=== PATIENT | female | born 1955 | race Caucasian/White ===

== ENCOUNTER → 2018-06-29 10:45 | Outpatient (REF) | payer MEDICAID, SELFPAY | LOC: LBN 10:45 | PROVIDERS: PCP Nurse Practitioner Family; Visit Provider Nurse Practitioner Family | DX: N76.0 Acute vaginitis (principal) | CPT/HCPCS: 87480; 87510; 87660 ==

== ENCOUNTER → 2018-07-02 16:48 | Outpatient (REF) | payer MEDICAID, SELFPAY ==
[2018-07-04 10:56] LABS: Campylobacter PCR SEE COMMENTS; Salmonella PCR SEE COMMENTS; Shiga Toxin PCR SEE COMMENTS; Shigella/Enteroinvasive Ecoli SEE COMMENTS
== END ==
LOC: LBN 16:48
PROVIDERS: PCP Nurse Practitioner Family; Visit Provider Nurse Practitioner Family
DX: K62.5 Hemorrhage of anus and rectum (principal)
CPT/HCPCS: 87505; 87177

== ENCOUNTER 2018-08-11 05:54 | Day surgery (SDC) | payer MEDICAID, SELFPAY ==
[2018-08-11 06:18] VITALS: BP 193/99; PULSE 99; RESP 18; TEMP 36.7; O2SAT 98
[2018-08-11] MEDS: Lactated Ringers 1,000 ML 30 ML IV (06:40)
[2018-08-11] MEDS: Cellulose,Oxidized 2X3 PKT 1 EACH MC (08:19)
--- NOTE | 2018-08-11 08:36 | W.PM.DSUDISC ---
Discharge Plan Disposition Patient Disposition: HOME Condition: Good Discharge Details Reason For Visit: rectal bleeding Attending Provider: Morgan Garner Primary Care Provider: Oliva De La Torre Home Meds and New Rx's Prescriptions: No Action ibuprofen [Advil Liqui-Gel] 200 MG capsule 200 mg PO Q4H PRN RF: 0 levothyroxine 75 MCG tablet 75 mcg PO DAILY Qty: 90 RF: 3 atorvastatin [Lipitor] 20 MG tablet 20 mg PO HS Qty: 90 RF: 4 lansoprazole [Prevacid] 30 MG capsule,delayed release(DR/EC) 30 mg PO DAILY Qty: 90 RF: 2 losartan 25 MG tablet 25 mg PO DAILY Qty: 90 RF: 4 hydroxyzine HCl 25 MG tablet 25 mg PO QID PRNQty: 30 RF: 0 ranitidine HCl [Zantac] 300 MG tablet 300 mg PO HS RF: 0 Discharge Instructions Instructions: Sphincterotomy (DC) Additional Instructions: Expect wound drainage for about a week, should taper off over the week Referrals: Morgan Garner DO [ [facility] STAFF PHYSICIAN] - 08/17/18 10:45 am (Follow up after lateral sphincterotomy for anal fissure) Activity:: Activity as Tolerated Shower/Bathe:: 24 hours Diet:: As Tolerated Discharge Orders Discharge Orders: Discharge Order (Routine); Ordered 08/11/18 Ordered By: Morgan Garner DS: Diagnosis Discharge Diagnosis (1) Rectal bleeding: Status: Acute
--- NOTE | 2018-08-11 08:40 | PDOC.DSDIS_ITS ---
Discharge Plan Disposition Patient Disposition: HOME Condition: Good Discharge Details Reason For Visit: rectal bleeding Attending Provider: Morgan Garner Primary Care Provider: Oliva De La Torre Home Meds and New Rx's Prescriptions: No Action ibuprofen [Advil Liqui-Gel] 200 MG capsule 200 mg PO Q4H PRN RF: 0 levothyroxine 75 MCG tablet 75 mcg PO DAILY Qty: 90 RF: 3 atorvastatin [Lipitor] 20 MG tablet 20 mg PO HS Qty: 90 RF: 4 lansoprazole [Prevacid] 30 MG capsule,delayed release(DR/EC) 30 mg PO DAILY Qty: 90 RF: 2 losartan 25 MG tablet 25 mg PO DAILY Qty: 90 RF: 4 hydroxyzine HCl 25 MG tablet 25 mg PO QID PRNQty: 30 RF: 0 ranitidine HCl [Zantac] 300 MG tablet 300 mg PO HS RF: 0 Discharge Instructions Instructions: Sphincterotomy (DC) Additional Instructions: Expect wound drainage for about a week, should taper off over the week Referrals: Morgan Garner DO [ [facility] STAFF PHYSICIAN] - 08/17/18 10:45 am (Follow up after lateral sphincterotomy for anal fissure) Activity:: Activity as Tolerated Shower/Bathe:: 24 hours Diet:: As Tolerated Discharge Orders Discharge Orders: Discharge Order (Routine); Ordered 08/11/18 Ordered By: Morgan Garner DS: Diagnosis Discharge Diagnosis (1) Rectal bleeding: Status: Acute
--- NOTE | 2018-08-11 08:40 | W.PM.OP ---
Date of service: 08/11/18 Time of Service: 08:40 Operative Note DATE OF PROCEDURE: 08/11/18 PRE-OP DIAGNOSIS: Rectal Bleeding POST-OP DIAGNOSIS: other (Anal Fissure) PROCEDURE: Examination under anesthesia of anus and rectum with lateral Sphincterotomy SURGEON: Morgan Garner RESIDENTIAL AIR SEALING TECHNICIAN: Kristin Daily ANESTHESIA: MAC (Erika Gomez CRNA ASA 2 Mallampati II) and spinal ESTIMATED BLOOD LOSS: 1 PATHOLOGY: none sent COMPLICATIONS: None Patient was transported to: same day Patient's condition: stable Indications: 63-year-old woman referred for rectal bleeding. She has had about a years worth of intermittent bright red blood per rectum occasionally clots. This occurs after her bowel movements she sometimes has burning itching with this. She has difficulty with having a bowel movement. She is often constipated. She knows of no alleviating or aggravating interventions. She had a colonoscopy and upper endoscopy 3 years ago which showed no evidence of hemorrhoids or other pathology the anus, rectum, colon. She was asymptomatic after that up until about a year ago and her bleeding started. She first noticed this after passing hard stool and was intermittent since then. 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 A lateral sphincterotomy was subsequently performed. Procedure Description: The patient was brought to the operating room. Spinal anesthetic was performed by anesthesia. The patient was positioned prone with all bony prominences padded, and sedation was titrated for effect by the RELATIONSHIP BANKER. Appropriate timeout was taken reviewing the patient's identification, procedure, allergies, medications, and needed equipment. I began by performing a digital rectal exam. There is no palpable evidence of hemorrhoids, slight thickening of the external sphincter muscle was noticeable circumferentially, and noted thickening was present in the posterior midline. I then introduced a bullet anoscope, and examined the anus and rectum circumferentially. No evidence of hemorrhoidal disease was seen 360 degree examination of the anus and distal rectum. In the posterior midline consistent with a thickened area of tissue was a fissure with recent signs of bleeding. I then performed a lateral sphincterotomy. Starting 90 degrees to the left of the anal fissure made a 1.5 cm radial incision starting just above the anal verge extending outward. Blunt dissection was performed anterior and posterior to the external sphincter muscle. Then using a right angle clamp, I passed this through the muscle pulling approximately a centimeter length of this up into the wound field. This was subsequently divided using cautery. Hemostasis obtained with cautery. I lightly packed the wound with Surgicel for hemostasis. A dry sterile dressing was applied the patient was awakened in the OR and brought to the day surgery recovery area in good condition. All counts were reported as correct x2.
[2018-08-11 09:00] VITALS: BP 152/84; PULSE 94; RESP 18; TEMP 35.9; O2SAT 97
[2018-08-11 09:40] VITALS: BP 147/83; PULSE 83; RESP 16; O2SAT 98
[2018-08-11 10:05] VITALS: BP 144/80; PULSE 92; RESP 18; TEMP 36; O2SAT 98
== END 2018-08-11 11:15 | disposition home or self-care (01) ==
PROVIDERS: PCP Nurse Practitioner Family; Visit Provider Surgery
PROC: (CPT 46080; principal; 2018-08-11 07:30)
PROC: (CPT 46080; 2018-08-11 07:30)
DX: K60.1 Chronic anal fissure (principal); K62.5 Hemorrhage of anus and rectum; K21.9 Gastro-esophageal reflux disease without esophagitis; I10 Essential (primary) hypertension
CPT/HCPCS: 46080; J2250; J2405

== ENCOUNTER 2018-10-19 02:31 | Outpatient (CLI) | payer MEDICAID, SELFPAY ==
[2018-10-19 13:06] LABS: Abs Immature Grans 0.03 k/cumm (0.0-0.09); Absolute Basophil Count 0.02 k/cumm (0.0-0.2); Absolute Eosinophil Count 0.12 k/cumm (0.0-0.7); Absolute Lymphocyte Count 1.61 k/cumm (1.2-3.4); Absolute Monocyte Count 0.27 k/cumm (0.11-0.7); Absolute Neutrophil Count 5.77 k/cumm (1.2-6.7); Basophils % 0.3; Eosinophils % 1.5; HCT 42.7 % (36.0-46.0); HGB 14.2 g/dL (12.0-15.5); Immature Grans % 0.4; Lymphocytes % 20.6; Mean Corp. HGB Concentration 33.3 g/dL (32.0-36.0); Mean Corpuscular Hemoglobin 29.8 pg (27.0-33.0); Mean Corpuscular Volume 89.7 fL (80-95); Mean Platelet Volume 10.2 fL (8.0-11.0); Monocytes % 3.5; Neutrophils % 73.7; Platelet Count 292 x1000/uL (130-400); RBC 4.76 m/cumm (4.00-5.20); RBC Distribution Width 13.3 % (11.7-14.6); White Blood Cell Count 7.82 k/cumm (4.4-10.8)
[2018-10-19 13:47] LABS: Anion Gap 11.1 mmol/L (3-11); BUN 19 mg/dL (7-18); CO2 26.9 mmol/L (21.0-32.0); CREATININE 0.75 mg/dL (0.55-1.02); Calcium 9.1 mg/dL (8.5-10.1); Chloride 102 mmol/L (98-107); Cholesterol 189 mg/dL (50-200); Glucose 92 mg/dL (70-100); HDL Cholesterol 53 mg/dL (40-60); LDL CHOLESTEROL 99 mg/dL (<100); Potassium 4.7 mmol/L (3.5-5.1); Sodium 140 mmol/L (136-145); Triglyceride 210 mg/dL (30-150)
== END 2018-10-19 02:51 ==
PROVIDERS: PCP Nurse Practitioner Family; Visit Provider Nurse Practitioner Family
DX: I10 Essential (primary) hypertension (principal); E78.5 Hyperlipidemia, unspecified; Z00.00 Encounter for general adult medical examination without abnormal findings; N76.0 Acute vaginitis
CPT/HCPCS: 36415; 80048; 80061; 83721; 85025; 87480; 87510; 87660

== ENCOUNTER 2018-10-28 01:08 | Outpatient (CLI) | payer MEDICAID, SELFPAY ==
--- NOTE | 2018-10-28 12:03 | DI.MAMMO_ITS ---
SYMPTOMS/DIAGNOSIS: SCREENING, Z12.31 MAMMOGRAMS: Mammograms were interpreted according to the usual protocol including computer analysis with CAD system, tomosynthesis and C view imaging. The breast tissue is of moderate radiodensity. There are small well- circumscribed lateral areas of nodularity, which are not significantly changed. There is apparent left nipple retraction. There is no definite mass. SUMMARY: Left nipple retraction is demonstrated. LEFT BREAST ULTRASOUND: The ultrasound examination reveals ductal prominence. There is no discrete mass. Correlation of these findings with the patient's clinical status and, if appropriate, a ductogram could be considered. Category 3, breast density category C. Return visit for mammogram in six months. [facility] ASSESSMENT OF FINDINGS: Probably benign. Six month follow-up recommended. Category 3. Patient will receive a letter notifying them of these results. Bi-RADS category C. The breasts are heterogeneously dense, which may obscure small masses.
== END 2018-10-28 01:28 ==
PROVIDERS: PCP Nurse Practitioner Family; Visit Provider Nurse Practitioner Family
DX: Z12.31 Encounter for screening mammogram for malignant neoplasm of breast (principal); N64.53 Retraction of nipple; R92.8 Other abnormal and inconclusive findings on diagnostic imaging of breast; N64.89 Other specified disorders of breast
CPT/HCPCS: 76642; 77063; 77067

== ENCOUNTER 2019-04-28 00:40 | Outpatient (CLI) | payer MEDICAID, SELFPAY ==
--- NOTE | 2019-04-28 10:00 | DI.COMBO_ITS ---
SYMPTOMS/DIAGNOSIS: 6-MO F/U ABNORMAL MAMMO SIX-MONTH FOLLOW-UP LEFT MAMMOGRAM AND LEFT BREAST ULTRASOUND: Mammograms were interpreted according to the usual protocol including computer analysis with CAD system, tomosynthesis and C view imaging. Craniocaudad compression spot films of the left breast were obtained today and are not significantly changed when compared with prior images. Two small ovoid densities are noted in the lateral subareolar portion of the left breast. Ultrasound examination is compared with the previous study. Again noted are multiple dilated ducts. No discrete cyst or mass is evident. SUMMARY: No evidence of malignancy, category 2. Yearly screening mammography is recommended. Breast density category B. [facility] ASSESSMENT OF FINDINGS: Negative with benign findings. Category 2. Patient will receive a letter notifying them of these results. BI-RADS category B. There are scattered areas of fibroglandular density.
== END 2019-04-28 01:00 ==
PROVIDERS: PCP Nurse Practitioner Family; Visit Provider Nurse Practitioner Family
DX: Z12.31 Encounter for screening mammogram for malignant neoplasm of breast (principal); R92.8 Other abnormal and inconclusive findings on diagnostic imaging of breast; N60.42 Mammary duct ectasia of left breast; N60.82 Other benign mammary dysplasias of left breast
CPT/HCPCS: 76642; 77061; 77065; G0279

== ENCOUNTER 2019-04-30 02:07 | Outpatient (CLI) | payer MEDICAID, SELFPAY ==
[2019-04-30 12:19] LABS: FREE T4 1.17 ng/dL (0.76-1.46); TSH 2.61 uIU/mL (0.358-3.74)
[2019-05-03 10:54] LABS: Thyroglobulin Antibody >500 U/mL (<61); Thyroperoxidase Antibody 30 U/mL (<61)
== END 2019-04-30 02:27 ==
PROVIDERS: PCP Nurse Practitioner Family; Visit Provider Nurse Practitioner Family
DX: I10 Essential (primary) hypertension (principal)
CPT/HCPCS: 36415; 86376; 84439; 84443

== ENCOUNTER 2019-05-19 00:38 | Outpatient (CLI) | payer MEDICAID, SELFPAY ==
[2019-05-19] MEDS: Breeza Beverage 473 ML BTL PO ×2 (08:50→08:51)
[2019-05-19] MEDS: Omnipaque 350 MG/ML 50 ML BTL PO (08:51)
[2019-05-19 08:54] LABS: CREATININE 0.79 mg/dL (0.55-1.02)
--- NOTE | 2019-05-19 10:23 | DI.CT_ITS ---
SYMPTOM/DIAGNOSIS: CRAMPY CENTRAL ABD PAIN, RECTAL BLEEDING, R10.9, ABD PAIN ABDOMEN AND PELVIC CT: CT examination of the abdomen and pelvis was performed with a bolus infusion of 100 cc's of Omnipaque 350 and ingestion of dilute barium. Images obtained through the lung bases are unremarkable. Liver and spleen appear normal. Note is made of a prior cholecystectomy. No biliary dilatation is seen. Pancreas appears normal. Adrenals and kidneys are unremarkable. No urinary tract calcification or obstruction. Abdominal aorta is of normal diameter and no major vascular abnormality is seen. No significant abdominal wall hernia is seen. No abdominal or pelvic adenopathy. CUTTING INSPECTOR structures appear intact except for a probable posterior uterine fibroid. Appendix appears normal. There is a question of mild wall thickening of the transverse, descending and sigmoid colon. This is a somewhat questionable finding since the lumen is predominantly collapsed. No pericolonic fat edema is seen. No evidence of obstruction. No evidence of diverticulitis. Small bowel has an unremarkable appearance. CONCLUSION: 1. Previous cholecystectomy noted. 2. Question mild wall thickening transverse, descending and sigmoid colon, consider colitis.
[2019-05-19] MEDS: Omnipaque 350 MG/ML 100 ML BTL IJ (10:24)
== END 2019-05-19 00:58 ==
PROVIDERS: PCP Nurse Practitioner Family; Visit Provider Surgery
DX: R10.84 Generalized abdominal pain (principal); K62.5 Hemorrhage of anus and rectum; K63.89 Other specified diseases of intestine; Z90.49 Acquired absence of other specified parts of digestive tract
CPT/HCPCS: 74177; 82565; J3490; Q9967

== ENCOUNTER 2019-06-11 02:11 | Outpatient (CLI) | payer MEDICAID, SELFPAY ==
--- NOTE | 2019-06-11 12:43 | DI.US_ITS ---
SYMPTOMS/DIAGNOSIS: POSTMENOPAUSAL BLEEDING, N95.0 PELVIC ULTRASOUND: Transabdominal and transvaginal examination was performed. The uterus measures 6.4 cm long x 4 cm AP x 4.7 cm transverse. There is a hypoechoic mass arises from the fundus of the uterus measuring 2 x 2 x 2. 7 cm. There is a second hypoechoic mass seen in the posterior body measuring 1.4 x 0.8 x 1.2 cm. These are most suggestive of uterine fibroids. The endometrial stripe is within normal limits at 2.7 mm. The ovaries were not visualized transabdominally or transvaginally. No adnexal masses are seen. No free pelvic fluid or hydronephrosis is appreciated. IMPRESSION: Fibroid uterus.
== END 2019-06-11 02:31 ==
PROVIDERS: PCP Nurse Practitioner Family; Visit Provider Nurse Practitioner Family
DX: N95.0 Postmenopausal bleeding (principal); D25.9 Leiomyoma of uterus, unspecified
CPT/HCPCS: 76830; 76856

== ENCOUNTER 2019-06-18 13:18 | Outpatient (REF) | payer MEDICAID, SELFPAY ==
--- NOTE | 2019-06-18 12:15 | ENDO_PTH ---
PATIENT: Lidia Azevedo LOC: [facility] U#:[id number] AGE/SX: 64/F ROOM: RE06/18/[address]: Shelby Rosales MD : 1955 BED: DIS: 06/18/2019 SPEC #: [id number] RECD: 06/18/19 18:01 STATUS: NEDA REVeda #: [id number] LEFTY: 06/18/19 12:[address]: Shelby Rosales DEPT: Surgical Specimen RECD BY: Caitlyn Ling ENTERED: 06/18/19 18:02 SP TYPE: Endo OTHR DR: KATIE Casas Tissues: 1 - ENDOCERVICAL BX/CURRETTE Procedures: GROSS AND MICRO LEVEL 4 Comments: [id number]
== END 2019-06-18 13:38 ==
LOC: LBN 13:18
PROVIDERS: PCP Nurse Practitioner Family; Visit Provider Obstetrics & Gynecology
DX: N84.1 Polyp of cervix uteri (principal); N95.0 Postmenopausal bleeding
CPT/HCPCS: 88305

== ENCOUNTER 2019-08-12 06:14 | Day surgery (SDC) | payer MEDICAID, SELFPAY ==
[2019-08-12 06:35] VITALS: BP 144/92; PULSE 104; RESP 18; TEMP 37; O2SAT 98
[2019-08-12] MEDS: Lactated Ringers 1,000 ML 80 ML IV (06:41)
--- NOTE | 2019-08-12 07:15 | W.PM.DSUDISC ---
Discharge Plan Disposition Patient Disposition: HOME Condition: Good Discharge Details Reason For Visit: Colonoscopy Attending Provider: Camilla Kevin Primary Care Provider: Oliva De La Torre Home Meds and New Rx's Prescriptions: Continued lansoprazole [Prevacid] 30 mg capsule,delayed release(DR/EC) 30 mg PO DAILY Qty: 90 RF: 4 losartan 50 mg tablet 50 mg PO BID Qty: 180 RF: 4 budesonide 3 mg capsule,delayed,extend.release 3 mg PO DAILY Qty: 30 RF: 0 ibuprofen [Advil Liqui-Gel] 200 MG capsule 200 mg PO Q4H PRN RF: 0 levothyroxine 75 mcg tablet 75 mcg PO DAILY Qty: 90 RF: 4 atorvastatin [Lipitor] 20 mg tablet 20 mg PO HS Qty: 90 RF: 4 ranitidine HCl [Zantac] 300 mg tablet 300 mg PO HS Qty: 90 RF: 4 budesonide 3 mg capsule,delayed,extend.release 3 mg PO .COMPLEX Qty: 135 RF: 0 amlodipine 5 mg tablet 5 mg PO DAILY Qty: 90 RF: 4 acetaminophen 500 mg Capsule 1,000 mg PO PRN PRNRF: 0 docusate sodium [Dulcolax Stool Softener (dss)] 100 mg Capsule 1 mg PO DAILY RF: 0 Discharge Instructions Additional Instructions: Findings: The colon appeared normal. Random biopsies were performed to evaluate for colitis. My office will contact you with biopsy results. There were no prominent internal hemorrhoids that needed banding. Follow up: Plan for routine colon screening in 10 years or sooner if symptoms arise. Please call if you develop: fevers >101.5 Nausea or Vomiting Abdominal pain that is not transient DAY SURGERY UNIT POST COLONOSCOPY INSTRUCTIONS 1. Because there will be medication in your system for the next 24 hours, you may feel a little sleepy. Your coordination will be affected. Therefore: a. Do not drive or operate dangerous equipment for 24 hours. b. Do not drink alcohol beverages for 24 hours (not even beer). c. Plan to go home and rest for the day. 2. Generally there are no restrictions on your activity after a day or so has gone by, but you may feel a bit fatigued for a few days. 3 After you arrive home you may have a light meal and return to a normal diet as you can tolerate it without feeling sick to your stomach. 4. After surgery, you may feel pain or discomfort. This should be only transient, but if it persists please contact your doctor. 5. If there are any questions regarding the findings of your procedure, please feel free to contact your doctor. 6. If you are unable to contact your doctor with a problem, contact the hospital at [phone]. 7. Continue all your regular medications unless directed otherwise. I understand the above instructions and have no questions. Signature of Patient or Responsible Adult Escort Date/Time Name of Responsible Adult Escort Signature of Nurse Date/Time Activity:: Activity as Tolerated Diet:: As Tolerated Discharge Orders Discharge Orders: Discharge Order (Routine); Ordered 08/12/19 Ordered By: Camilla Kvein DS: Diagnosis Discharge Diagnosis (1) Rectal bleeding: Status: Inactive
--- NOTE | 2019-08-12 07:43 | BOWEL_PTH ---
PATIENT: Lidia Azevedo LOC: [facility] U#:[id number] AGE/SX: 64/F ROOM: RE08/12/[address]: Camilla Kevin MD : 1955 BED: DIS: 08/12/2019 SPEC #: [id number] RECD: 08/12/19 12:32 STATUS: NEDA REVeda #: [id number] LEFTY: 08/12/19 07:[address]: Camilla Kevin DEPT: Surgical Specimen RECD BY: Caitlyn Ling ENTERED: 08/12/19 12:33 SP TYPE: Bowel OTHR DR: KATIE Casas Tissues: 1 - BIOPSY BOWEL 2 - BIOPSY BOWEL Procedures: GROSS AND MICRO LEVEL 4 Comments: [id number]
[2019-08-12 08:30] VITALS: BP 120/67; PULSE 80; RESP 16; TEMP 36.2; O2SAT 96
--- NOTE | 2019-08-12 12:09 | COLE_ITS ---
AUGUST 12, 2019 PREOPERATIVE DIAGNOSIS: History of colitis. Rectal bleeding. POSTOP DIAGNOSIS: Normal colon pending biopsies. OPERATION: Colonoscopy with random biopsies. ANESTHESIA: General. INDICATIONS: This is a 64-year-old woman who presented with some loose, frequent stools along with mild abdominal cramping and rectal bleeding with wiping. She had a colonoscopy in 2014 that showed lymphocytic colitis. She also had a lateral internal sphin cterotomy in 2018. The patient had some improvement in her symptoms recently with a Budesonide taper but continues to mckeon ve the same complaints. PROCEDURE: The patient was placed in the left Crespo position. Propofol was titrated to sedation. Digital rectal exam revealed no masses. There were no strictures evident. The scope was inserted and retroflexed. There were no prominent internal hemorrhoids so banding as n ot felt to be necessary. The scope was advanced to the cecum without difficulty. Her prep was excel lent. The distal ileum was intubated and was grossly normal. Random biopsies were taken from the di stal ileum. The scope was slowly withdrawn with no obviously abnormality seen within the ascending, transverse, descending, sigmoid colon or rectum. Random biopsies were performed throughout to evalu ate for lymphocytic colitis. She may have had a little mucosal congestion but this was not particula rly prominent. She tolerated the procedure well and was stable to Recovery. I will contact her with the biopsy results. She may need to be on a slower Budesonide taper. She w ill not need a follow-up screening for ten years but could be sooner as symptoms indicate.
== END 2019-08-12 09:16 | disposition home or self-care (01) ==
PROVIDERS: PCP Nurse Practitioner Family; Visit Provider Surgery
PROC: 0DJD8ZZ Inspection of Lower Intestinal Tract, Via Natural or Artificial Opening Endoscopic (ICD-10-PCS; CPT 45378; principal; 2019-08-12 07:30)
DX: K62.5 Hemorrhage of anus and rectum (principal); R19.4 Change in bowel habit; Z87.19 Personal history of other diseases of the digestive system; I10 Essential (primary) hypertension; K21.9 Gastro-esophageal reflux disease without esophagitis
CPT/HCPCS: 45380; 88305

== ENCOUNTER 2019-09-16 11:18 | Outpatient (CLI) | payer MEDICAID, SELFPAY ==
[2019-09-16 11:48] LABS: Abs Immature Grans 0.01 k/cumm (0.0-0.09); Absolute Basophil Count 0.02 k/cumm (0.0-0.2); Absolute Lymphocyte Count 1.45 k/cumm (1.2-3.4); Absolute Neutrophil Count 4.44 k/cumm (1.2-6.7); Basophils % 0.3; Eosinophils % 1.6; HCT 43.6 % (36.0-46.0); HGB 14.3 g/dL (12.0-15.5); Immature Grans % 0.2; Lymphocytes % 22.9; Mean Corp. HGB Concentration 32.8 g/dL (32.0-36.0); Mean Corpuscular Hemoglobin 29.5 pg (27.0-33.0); Mean Corpuscular Volume 90.1 fL (80-95); Mean Platelet Volume 9.8 fL (8.0-11.0); Monocytes % 4.7; Neutrophils % 70.3; Platelet Count 295 x1000/uL (130-400); RBC 4.84 m/cumm (4.00-5.20); RBC Distribution Width 13.4 % (11.7-14.6); White Blood Cell Count 6.32 k/cumm (4.4-10.8)
== END 2019-09-16 11:38 ==
PROVIDERS: PCP Nurse Practitioner Family; Visit Provider Obstetrics & Gynecology
DX: N95.0 Postmenopausal bleeding (principal); Z01.818 Encounter for other preprocedural examination; Z01.812 Encounter for preprocedural laboratory examination
CPT/HCPCS: 36415; 86850; 86900; 86901; 85025

== ENCOUNTER 2019-09-23 11:45 | Day surgery (SDC) | payer MEDICAID, SELFPAY ==
[2019-09-16 10:55] VITALS: BP 166/77; PULSE 92; RESP 16; TEMP 36.4; O2SAT 97
[2019-09-23] VITALS (8 sets, daily range): BP systolic 133–186; BP diastolic 69–90; PULSE 100–113; RESP 11–18; TEMP 36–37.1; O2SAT 92–97
[2019-09-23] MEDS: Lactated Ringers 1,000 ML 125 ML IV (12:14)
--- NOTE | 2019-09-23 13:40 | ENDOMET_PTH ---
PATIENT: Lidia Azevedo LOC: [facility] U#:[id number] AGE/SX: 64/F ROOM: RE09/23/[address]: Donavon Ramos MD : 1955 BED: DIS: 09/23/2019 SPEC #: [id number] RECD: 09/23/19 15:52 STATUS: NEDA REQ #: [id number] LEFTY: 09/23/19 13:[address]: Donavon Ramos DEPT: Surgical Specimen RECD BY: Caitlyn Ling ENTERED: 09/23/19 15:52 SP TYPE: Endomet OTHR DR: KATIE Casas Tissues: 1 - ENDOMETRIUM BX/NAYEETTE Procedures: GROSS AND MICRO LEVEL 4 Comments: [id number]
[2019-09-23] MEDS: Lidocaine 1% Pres-Free 5 ML VIAL (13:48)
--- NOTE | 2019-09-23 14:48 | W.PM.DSUDISC ---
Discharge Plan Discharge Details Reason For Visit: PUB Attending Provider: Donavon Ramos Primary Care Provider: Oliva De La Torre Home Meds and New Rx's Prescriptions: No Action lansoprazole [Prevacid] 30 mg capsule,delayed release(DR/EC) 30 mg PO DAILY Qty: 90 RF: 4 losartan 50 mg tablet 50 mg PO BID Qty: 180 RF: 4 ibuprofen [Advil Liqui-Gel] 200 MG capsule 200 mg PO Q4H PRN RF: 0 levothyroxine 75 mcg tablet 75 mcg PO DAILY Qty: 90 RF: 4 atorvastatin [Lipitor] 20 mg tablet 20 mg PO HS Qty: 90 RF: 4 ranitidine HCl [Zantac] 300 mg tablet 300 mg PO HS Qty: 90 RF: 4 amlodipine 5 mg tablet 5 mg PO DAILY Qty: 90 RF: 4 acetaminophen 500 mg Capsule 1,000 mg PO PRN PRNRF: 0 docusate sodium [Dulcolax Stool Softener (dss)] 100 mg Capsule 1 mg PO DAILY RF: 0 DS: Diagnosis Discharge Diagnosis (1) Postmenopausal bleeding: Status: Acute
--- NOTE | 2019-09-23 15:34 | W.PM.OP ---
Date of service: 09/23/19 Time of Service: 15:34 Operative Note Operative Note DATE OF PROCEDURE: 09/23/19 PRE-OP DIAGNOSIS: Postmenopausal bleeding POST-OP DIAGNOSIS: same PROCEDURE: Hysteroscopy D&C SURGEON: Donavon Ramos ANESTHESIA: JUAN ESTIMATED BLOOD LOSS: 5 PATHOLOGY: other (Endometrial curettings) COMPLICATIONS: None Patient was transported to: PACU Patient's condition: stable Findings: 1. 2 small polyps in the endocervical canal 2. Thin atrophic endometrium with one small polyp on the right near the fundus Procedure Description: Patient was taken to the operating room and after adequate general anesthesia was obtained the patient was placed in lithotomy position. The patient was prepped and draped in the usual sterile manner. A weighted speculum was placed in the vagina with good visualization of the cervix. The anterior lip of the cervix was grasped with a single-tooth tenaculum. A paracervical block with 10 cc of 1% plain lidocaine solution was instilled. The cervix was gently dilated with Caro dilators. The 5 mm 30 degree hysteroscope with normal saline distention media was advanced to the cervix without difficulty. There were 2 small polyps in the endocervical canal which were noted. The hysteroscope was advanced into the endometrial cavity. The lining was atrophic and thin in appearance. On the right side near the fundus there was a small fleshy polyp noted. The hysteroscope was removed. Sharp curettage was performed within both the endocervical canal and the endometrium. Tissue is submitted together to pathology as a single specimen. The hysteroscope was reinserted. The polyps were noted to have been removed in their entirety from the curettage. The procedure was concluded at this point. All instrumentation was removed. The patient was transferred to PACU in stable condition.
== END 2019-09-23 16:41 | disposition home or self-care (01) ==
LOC: SUR 11:46
PROVIDERS: PCP Nurse Practitioner Family; Visit Provider Obstetrics & Gynecology
PROC: 0UDB8ZZ Extraction of Endometrium, Via Natural or Artificial Opening Endoscopic (ICD-10-PCS; CPT 58558; principal; 2019-09-23 13:00)
DX: N95.0 Postmenopausal bleeding (principal); N84.0 Polyp of corpus uteri; N84.1 Polyp of cervix uteri
CPT/HCPCS: 58558; 88305; J1100; J1885; J2405

== ENCOUNTER 2020-05-31 10:24 | Emergency (ER) | payer MEDICAID, SELFPAY ==
[2020-05-31 10:36] VITALS: BP 185/89; PULSE 92; RESP 18; TEMP 36.4; O2SAT 99
--- NOTE | 2020-05-31 10:47 | W.ED.GENAD ---
Discharge Plan Disposition Patient Disposition: HOME Condition: Stable Discharge Details Chief Complaint: EarProblem Clinical Impression: Ear pain, right, Acute dysfunction of right eustachian tube Primary Care Provider: Oliva De La Torre ED Provider: Pushpa Oh Home Meds and New Rx's Prescriptions: New amoxicillin-pot clavulanate [Augmentin] 875-125 mg tablet 1 tab PO BID 5 Days Qty: 10 RF: 0 fluticasone furoate 27.5 mcg/actuation spray,suspension 1 spray OSORIO DAILY Qty: 9.1 RF: 0 Continued lansoprazole [Prevacid] 30 mg capsule,delayed release(DR/EC) 30 mg PO DAILY Qty: 90 RF: 4 chlorthalidone 25 mg tablet 25 mg PO DAILY Qty: 90 RF: 4 levothyroxine 75 mcg tablet 75 mcg PO DAILY Qty: 90 RF: 4 atorvastatin [Lipitor] 20 mg tablet 20 mg PO HS Qty: 90 RF: 4 losartan 50 mg tablet 50 mg PO BID Qty: 180 RF: 4 famotidine 40 mg tablet 40 mg PO DAILY Qty: 90 RF: 4 docusate sodium [Dulcolax Stool Softener (dss)] 100 mg Capsule 1 mg PO DAILY RF: 0 Discharge Instructions Instructions: Earache (ED) Additional Instructions: Take medication as prescribed. You may also try gjiy-guo-ogxpotj allergy medicine. Flonase nasal spray once daily in each nare will help your congestion also. Take antibiotic with yogurt or a probiotic. Follow up with primary care provider in 3-5 days. Return to ED sooner if any worsening or concerns. Increase oral fluids. Please take Tylenol with food every 4-6 hours as needed for pain and swelling. Referrals: Oliva De La Torre NP [Primary Care Provider] - Discharge Data Discharge Date/Time-TO BE ENTERED AT DEPARTURE: 05/31/20 11:14 Medical Decision Making 65-year-old female presents to the ED with a chief complaint of right ear pain which is been ongoing for the last few weeks. Patient denies fever, no trouble swallowing, no sore throat. She had a tele-visit on May 19, 2020 and was told to keep an eye on the pain and to come to the ED if continued pain. Patient denies any temporal tenderness, has been using hydrogen peroxide to irrigate ear at home. Has not taken any hwtj-vis-pnqgpau medications except for ibuprofen which she states is not helping. At this time I do feel that this is more fluid effusion versus infection. There is no erythema, no bulging. There is fluid behind the eardrum and loss of landmarks. Patient given a short 5-day antibiotic and fluticasone nasal spray and instructed to take adap-zgc-vzykcjd allergy medicine. Instructed to follow-up with PCP given strict return instructions, verbalized understanding. HPI General Mode of arrival: ambulatory. Date/Time Provider Initiated Documentation: 05/31/20 10:27. Limitations to Documentation: no limitations. Information obtained by: patient. HPI Narrative: 65-year-old female presents to the ED with a chief complaint of right ear pain which is been ongoing for the last few weeks. Patient denies fever, no trouble swallowing, no sore throat. She had a tele-visit on May 19, 2020 and was told to keep an eye on the pain and to come to the ED if continued pain. Patient denies any temporal tenderness, has been using hydrogen peroxide to irrigate ear at home. Has not taken any jzja-vja-ijzljpw medications except for ibuprofen which she states is not helping. Related Data Home Medications Medication Instructions Recorded Confirmed lansoprazole 30 mg capsule,delayed 30 mg PO DAILY #90 tab-cap 06/03/19 02/21/20 release docusate sodium [Dulcolax Stool 1 mg PO DAILY 08/12/19 02/21/20 Softener (dss)] levothyroxine 75 mcg tablet 75 mcg PO DAILY #90 tab-cap 10/20/19 02/21/20 chlorthalidone 25 mg tablet 25 mg PO DAILY #90 tab 01/14/20 02/21/20 atorvastatin 20 mg tablet 20 mg PO HS #90 tab-cap 03/20/20 losartan 50 mg tablet 50 mg PO BID #180 tab 03/20/20 famotidine 40 mg tablet 40 mg PO DAILY #90 tab 04/24/20 amoxicillin-pot clavulanate 1 tab PO BID 5 Days #10 tab 05/31/20 [Augmentin] fluticasone furoate 1 spray OSORIO DAILY #9.1 ml 05/31/20 Previous Rx's Medication Instructions Recorded lansoprazole 30 mg capsule,delayed 30 mg PO DAILY #90 tab-cap 06/03/19 release levothyroxine 75 mcg tablet 75 mcg PO DAILY #90 tab-cap 10/20/19 chlorthalidone 25 mg tablet 25 mg PO DAILY #90 tab 01/14/20 atorvastatin 20 mg tablet 20 mg PO HS #90 tab-cap 03/20/20 losartan 50 mg tablet 50 mg PO BID #180 tab 03/20/20 famotidine 40 mg tablet 40 mg PO DAILY #90 tab 04/24/20 amoxicillin-pot clavulanate 1 tab PO BID 5 Days #10 tab 05/31/20 [Augmentin] fluticasone furoate 1 spray OSORIO DAILY #9.1 ml 05/31/20 Allergies Allergy/AdvReac Type Severity Reaction Status Date / Time lisinopril AdvReac Intermediate cough Verified 05/31/20 10:40 General Stated Complaint: EarProblem ECTOR: 5 Review of Systems Narrative: Constitutional: Negative for weight loss, alert and oriented, well groomed, normal body habitus, appears comfortable. HEENT: Denies trauma, does have mild headaches, blurry vision, nasal discharge, sore throat, trouble swallowing. Reports right ear pain radiates into her right jaw x3 weeks. Chest: Denies chest pain, palpitations, irregular rhythm, has a history of hypertension. Respiratory: Denies Shortness of breath, cough, hemoptysis. GI: Denies abdominal pain, nausea, vomiting, diarrhea, constipation. Has a history of GERD : Denies dysuria, hematuria, flank pain, rectal bleeding. Neuro: Denies dizziness, blurry vision, weakness, syncope, headache or facial numbness. Hematologic: Denies easy bruising, intolerance to heat or cold, hair loss. FOR[facility]LY [facility] Medical History Essential hypertension (Chronic) GERD (gastroesophageal reflux disease) (Chronic) Hyperlipidemia (Chronic) Hypothyroidism (Chronic) Obesity (Chronic) Postmenopausal bleeding (Resolved) Benign endometrial biopsies 2016, 2017, 2019 Rectal bleeding (Inactive) Negative colonoscopy 2019, d/t ?internal hemorrhoids Surgical History H/O rectal sphincterotomy (Inactive 08/11/18) Dr Garner, lateral sphincterotomy History of endometrial biopsy (Inactive) Negative; done for postmenopausal bleeding History of esophagogastroduodenoscopy (Inactive) Hx of left breast biopsy (Acute ~2001) With marker placed, per pt Status post cholecystectomy (Inactive ~1985) Status post hysteroscopy (Acute 09/23/19) plus D&C for postmenopausal bleeding; benign Status post surgical removal of ganglion cyst (Inactive) From right wrist Family History Mother , at 56 of [place] Substance abuse Essential hypertension Heart disease Myocardial infarction Father , at 83 Essential hypertension Heart disease Sister No problems noted. Sister Essential hypertension Brother Diabetes Essential hypertension Heart disease Brother Heart disease Brother No problems noted. Daughter No problems noted. Son No problems noted. Maternal Grandfather No problems noted. Maternal Grandmother No problems noted. Paternal Grandfather No problems noted. Paternal Grandmother No problems noted. Social History Smoking/Tobacco Use Status: Never Second Hand Exposure: Yes Alcohol Intake: current Alcohol Intake frequency: holidays/special occasions only Alcohol type: hard liquor Drug use: Never Substance use type: does not use Details: pt states she may have a drink once a year on her anniversary Caregiver/Support person: No Household members: spouse Do you need help understanding health information?: Always Pets and animals: Yes Pets and animals: dog(s) Sexually active: No Do you think of yourself as: straight/heterosexual Current gender identity: decline to answer What is your relationship status?: How often do you talk on the phone with friends or family?: never How often do you get together with friends or relatives?: once per week How often do you attend caodaism or anglican services?: decline to answer Do you belong to any clubs or organized social groups?: no Panel score (0-1 are the most socially isolated patients): 1 What type of physical activity do you participate in: walking Duration: 15-30 minutes/day Frequency: 3-4 times per week Keysha/Faith: Worship Special keysha needs: No Seatbelt use: always Helmet use: No Drive intox or ride w/intox driver/merchandiser: No Do you feel safe at home: Yes Do you feel safe in your relationship?: Yes Female Reproductive History Menstrual Menopause type: natural History History 4 Para 2 Hx # Term Pregnancies Multiple births Hx # Pregnancies Ectopic pregnancies AB induced 1 Hx Number of Living Children 2 AB spontaneous 1 Exam Const General: cooperative, healthy appearing, comfortable, no acute distress, well developed and well groomed Nutritional Appearance: average body habitus Orientation: alert, awake and oriented x3 HENMT Head: normal to inspection Ears: hearing grossly normal bilaterally, external ears normal, TM normal on the left, no periauricular adenopathy and TM abnormal dull, with loss of landmarks and scarred; not erythematous and not obstructed by cerumen General nose exam: external nose normal Face and sinus: normal facial exam Mouth: oral mucosae normal, no drooling, no muffled voice and No abnormal TMJ Teeth and gingiva: other (Absent dentition) Throat: posterior oropharynx normal Course Vital Signs Vital signs: Vital Signs Temperature 36.4 C L 05/31/20 10:36 Pulse 92 H 05/31/20 10:36 Respiratory Rate 18 05/31/20 10:36 Blood Pressure 185/89 H 05/31/20 10:36 Pulse Oximetry 99 05/31/20 10:36 Temperature 36.4 C L 05/31/20 10:36 Temperature Source Temporal Artery Scan 05/31/20 10:36 Pulse 92 H 05/31/20 10:36 Respiratory Rate 18 05/31/20 10:36 Respiratory Effort Non-Labored 05/31/20 10:39 Blood Pressure 185/89 H 05/31/20 10:36 Blood Pressure Position Sitting 05/31/20 10:36 Pulse Oximetry 99 05/31/20 10:36 Oxygen Delivery Method Room Air 05/31/20 10:36 Oxygen Flow Rate 0 05/31/20 10:36 Pain Level 8 05/31/20 10:36
== END 2020-05-31 11:14 | disposition home or self-care (01) ==
PROVIDERS: Emergency Provider Registered Nurse Emergency; PCP Nurse Practitioner Family
DX: H69.81 Other specified disorders of Eustachian tube, right ear (principal); H92.01 Otalgia, right ear; I10 Essential (primary) hypertension
CPT/HCPCS: 99283

== ENCOUNTER 2020-10-23 08:32 | Outpatient (CLI) | payer MEDICAID, SELFPAY ==
[2020-10-23 12:45] LABS: Hemoglobin A1C 5.7 % (<5.7)
[2020-10-23 12:48] LABS: ALT 34 U/L (14-59); AST 22 U/L (15-37); Albumin 4.3 g/dL (3.4-5.0); Alkaline Phosphatase 178 U/L (46-116); Anion Gap 11.6 mmol/L (3-11); BUN 19 mg/dL (7-18); Bilirubin, Total 0.7 mg/dL (0.2-1.0); CO2 29.4 mmol/L (21.0-32.0); CREATININE 0.96 mg/dL (0.55-1.02); Calcium 9.3 mg/dL (8.5-10.1); Calculated LDL 99 mg/dL (<100); Chloride 99 mmol/L (98-107); Cholesterol 182 mg/dL (<200); Estimated GFR 58.51 (mL/min/1.73m2); Glucose 106 mg/dL (74-106); HDL Cholesterol 49 mg/dL (40-60); Potassium 3.4 mmol/L (3.5-5.1); Sodium 140 mmol/L (136-145); TSH 1.89 uIU/mL (0.36-3.74); Total Protein 7.5 g/dL (6.4-8.2); Triglyceride 173 mg/dL (<150)
[2020-10-23 13:11] LABS: FREE T4 1.35 ng/dL (0.76-1.46)
== END 2020-10-23 08:52 ==
PROVIDERS: PCP Nurse Practitioner Family; Referring Provider Nurse Practitioner Family; Visit Provider Nurse Practitioner Family
DX: I10 Essential (primary) hypertension (principal); E03.9 Hypothyroidism, unspecified; E78.5 Hyperlipidemia, unspecified; E66.9 Obesity, unspecified
CPT/HCPCS: 36415; 80053; 80061; 83036; 84439; 84443

== ENCOUNTER 2020-10-25 00:46 | Outpatient (CLI) | payer MEDICAID, SELFPAY ==
--- NOTE | 2020-10-25 06:30 | DI.MAMMO_ITS ---
EXAM: MG MAMMO SCREENING CLINICAL HISTORY: screening,Z12.39. TECHNIQUE: Bilateral full field digital CC and MLO mammographic images were obtained with 3D tomosyn thesis and utilizing computer aided detection (CAD). COMPARISON: Prior mammograms dating back to 2011, the most recent being October 2018 and April 2019 diagnostic study.. Breast ultrasound performed April 2019 was reviewed. FINDINGS: Asymmetric nodular densities in both breasts remain mostly unchanged. However, on 3D cc imaging of t he right breast there is a new well-defined noncalcified oval nodule measuring 4 x 3 millimeters loca lidia 5 centimetres in from the nipple. This is not evident on prior studies. Ultrasound recommended. There are no new findings in the vicinity of the biopsy marker clip in the opposite-left breast. N odular density medial aspect left breast is unchanged from prior studies There are no spiculated masses nor malignant appearing microcalcification groups. No new findings in the medial facet 80 of the biopsy marker clip in the left breast. There is no significant architectu ral distortion nor skin thickening-retraction. IMPRESSION: Small 4 x 3 millimeter right breast nodule. Ultrasound recommended to determine if this is solid or cystic BI-RADS Category 0 - Assessment Incomplete: Need additional imaging evaluation Breast Density - Category B - Scattered areas of fibroglandular density Breast density Category C or D implies that the patient has dense breast tissue. Dense breast tissue can make it harder to find cancer on a mammogram. Dense breast tissue is also associated with an incr eased risk of breast cancer. This information about the result of the mammogram report was provided to the patient to raise their awareness. Use this report when you speak with the patient about their risks for breast cancer, which includes their family history. At that time, you may recommend additional screening tests (Ultrasoun d or MRI) as these tests may add significant information. A negative radiographic report should not delay biopsy if a dominant or clinically suspicious mass is present. Up to ten percent of cancers are not identified on mammography. A negative report may reinforce clinical impression. Adenosis and dense breasts may obscure an underlying neoplasm. False positive reports average 6 to 10%. Patient will receive a letter notifying them of these results.
== END 2020-10-25 01:06 ==
PROVIDERS: PCP Nurse Practitioner Family; Visit Provider Nurse Practitioner Family
DX: Z12.31 Encounter for screening mammogram for malignant neoplasm of breast (principal); N63.10 Unspecified lump in the right breast, unspecified quadrant
CPT/HCPCS: 77063; 77067

== ENCOUNTER 2020-10-27 07:23 | Outpatient (CLI) | payer MEDICAID, SELFPAY ==
[2020-10-27 12:42] LABS: GGT 78 U/L (5-55)
[2020-10-30 05:52] LABS: Vitamin D 25 Total 15.8 ng/ml (30-100)
[2020-10-30 09:44] LABS: Parathyroid Hormone,Intact 81 pg/mL (19-88)
== END 2020-10-27 07:43 ==
PROVIDERS: PCP Nurse Practitioner Family; Visit Provider Nurse Practitioner Family
DX: R74.8 Abnormal levels of other serum enzymes (principal)
CPT/HCPCS: 36415; 82306; 82977; 83970

== ENCOUNTER 2020-10-30 00:45 | Outpatient (CLI) | payer MEDICAID, SELFPAY ==
--- NOTE | 2020-10-30 | DI.US_ITS ---
EXAM: US BREAST RT LIMITED CLINICAL HISTORY: F/U MAMMO, RT BREAST NODULE, ? CYSTIC OR SOLID TECHNIQUE: Ultrasound right breast performed using standard protocol. COMPARISON: MG MAMMO SCREENING from 10/25/2020 FINDINGS: There is a well-circumscribed 0.5 x 0.3 x 0.3 cm hypoechoic radially oriented nodule at the 11 o'cloc k position of the right breast 5 cm from the nipple. No internal blood flow is seen. Sonographicall y, this appears to correspond to the mammographic abnormality. No posterior acoustic enhancement or shadowing is seen. There is a question of a small hyperechoic notch which can be seen with a intrapa renchymal lymph node. IMPRESSION: 0.5 cm hypoechoic nodule in the right breast at the 11 o'clock position 5 cm from the nipple. No uzma picious sonographic features are seen. There is a question of a hyperechoic notch which can be seen with an intraparenchymal lymph node. A six-month follow-up mammogram and ultrasound should be obtain ed for re-evaluation. Findings were discussed with the patient on the date of the examination. BI-RADS Category 3 - 6 month - Probably Benign Finding: Recommend follow-up mammography in 6 months DATA REPOSITORY:
== END 2020-10-30 01:05 ==
PROVIDERS: PCP Nurse Practitioner Family; Visit Provider Nurse Practitioner Family
DX: N63.12 Unspecified lump in the right breast, upper inner quadrant (principal)
CPT/HCPCS: 76642

== ENCOUNTER 2021-05-01 01:41 | Outpatient (CLI) | payer MEDICARE, MEDICAID, SELFPAY ==
--- NOTE | 2021-05-01 07:00 | DI.MAMMO_ITS ---
Exam(s) MG MAMMO DIAGNOSTIC UNI US BREAST RT COMPLETE EXAM: US BREAST RT COMPLETE CLINICAL HISTORY: 3-6 MO F/U,F/U ABNL MAMMO, R92.8,Z09 TECHNIQUE: Ultrasound performed using standard protocol. COMPARISON: US US BREAST RT LIMITED from 10/30/2020 FINDINGS: Right breast ultrasound in right breast mammogram are interpreted in conjunction. These examinations were obtained to follow an area of nodularity of the right breast seen in the 11 o'clock position ab out 5 cm from the nipple on the prior ultrasound examination of October 2020. This is unchanged on today's examination and remains well circumscribed and measures about 5 millimeters in diameter on ul trasound and 7 millimeters in diameter mammographically. No other significant mammographic change se en. On ultrasound, there is a new septated complex cyst measuring about 6 millimeters in diameter in the 10 o'clock position 2 cm from the nipple. There is question of associated small solid component and some posterior acoustic shadowing, findings are indeterminate and malignancy is not entirely excluded . Follow-up right breast ultrasound recommended in 6 months to follow this apparent new finding. Th ere is no corresponding mammographic abnormality. IMPRESSION: Stable appearance previously noted right breast nodule. New right breast nodule which is indeterminate in appearance and seen only on ultrasound, in the 10 o 'clock position 2 cm from the nipple. Follow-up ultrasound recommended in 6 months. Routine screeni ng mammography should also resume in 6 months. BI-RADS Cat 3 - 6 month - Probably Benign Finding: Recommend follow-up imaging in 6 months Breast Density - Category B - Scattered areas of fibroglandular density DATA REPOSITORY:
== END 2021-05-01 02:01 ==
PROVIDERS: PCP Nurse Practitioner Family; Visit Provider Nurse Practitioner Family
DX: R92.8 Other abnormal and inconclusive findings on diagnostic imaging of breast (principal)
CPT/HCPCS: 76642; 77061; 77065; G0279

== ENCOUNTER 2021-10-24 09:29 | Outpatient (CLI) | payer MEDICARE, MEDICAID, SELFPAY ==
--- NOTE | 2021-10-24 09:15 | RT.EKG_ITS ---
APPROVED REPORT Exam: Resting ECG Reason for Exam: chest discomfort Patient Location: O HR:89 bpm ECG Measurements Heart Rate 89 AXIS NC 206 P 42 QRSd 90 QRS 74 QT 371 T 31 QTc 453 Conclusion Sinus rhythm...normal P axis, V-rate 60- 99
== END 2021-10-24 09:30 | disposition home or self-care (01) ==
LOC: DI.CM 09:30
PROVIDERS: PCP Family Medicine; Visit Provider Family Medicine
DX: R07.89 Other chest pain (principal)
CPT/HCPCS: 93010

== ENCOUNTER 2021-10-29 00:57 | Outpatient (CLI) | payer MEDICARE, MEDICAID, SELFPAY ==
--- NOTE | 2021-10-29 07:00 | DI.RAD_ITS ---
Exam(s) XR CHEST 2V PA LATERAL EXAM: XR CHEST 2V PA LATERAL CLINICAL HISTORY: chest pressure,r07.89 TECHNIQUE: 2D digital imaging was performed. COMPARISON: CR CHEST 2 VIEWS PA,LAT from 07/17/2016 FINDINGS: MEDIASTINUM: Normal. HEART: Normal. PULMONARY VASCULATURE: Normal. LUNGS: Clear. PLEURAL SPACE: No pleural effusion or pneumothorax. BONE:Unremarkable for age. Surgical clips right upper quadrant. IMPRESSION: No acute abnormality. DATA REPOSITORY: RADIATION DOSE DELIVERED:
--- NOTE | 2021-10-29 07:00 | DI.US_ITS ---
Exam(s) US BREAST RT LIMITED MAMMO SCREENING EXAM: MAMMO SCREENING CLINICAL HISTORY: screening,z12.39. TECHNIQUE: Craniocaudal and mediolateral oblique Full Field Digital Mammography views with Computer Aided Diagnosis followed by Tomosynthesis and breast ultrasound. COMPARISON: Mammograms 2011 through 01 May 2021. Right breast ultrasound April 28, 30 October 2 020 and April 30 FINDINGS: Mammography/Tomosynthesis: Masses/Architectural Distortion: Stable bilateral areas of nodularity. Microcalcifictions: No suspicious pleomorphic-type are seen. Skin Thickening: None. Biopsy marker clip left breast again noted. Right breast US: Echotexture: Normal appearance of the glandular tissue. Decreased size of previously noted 3 x 2 x 3 millimeter hypoechoic nodule 5 cm from the nipple in the 11 o'clock position. No change in size cystic 6 x 4 x 6 millimeters lesion 10 o'clock position 2 centimeters from the nipp le. No septation is visible. Ductal dilation: None. IMPRESSION: 1. Stable cystic areas right breast. No evidence of malignancy is noted. 2. Unless there is more urgent need, follow-up screening mammography is recommended, as per [place] [employer] guidelines. 3. The findings were discussed with the patient on the date of the examination. BI-RADS Cat 2 - Benign Findings Breast Density - Category B - Scattered areas of fibroglandular density A negative radiographic report should not delay biopsy if a dominant or clinically suspicious mass is present. Up to ten percent of cancers are not identified on mammography. A negative report may reinforce clinical impression. Adenosis and dense breasts may obscure an underlying neoplasm. False positive reports average 6 to 10%. Patient will receive a letter notifying them of these results.
--- NOTE | 2021-10-29 09:00 | DI.DEXA_ITS ---
Exam(s) XR DEXA BONE DENSITY W/WO IDALIA EXAM: XR DEXA BONE DENSITY W/WO IDALIA CLINICAL HISTORY: asymptomatic postmenopausal state, Z78.0, screening TECHNIQUE: [employer] C densitometer COMPARISON: No exams were available for comparison FINDINGS: Lateral view of the thoracic and lumbar spine shows no evidence of compression fractures. Bone mineral density measurements of the lumbar spine correspond to a total T-score of -0.3, in the normal range. Bone mineral density measurements of the left hip correspond to a total T-score of -0.9 . The femora l neck T-score is -1.2, consistent with mild osteopenia. Ten year fracture risk of major osteoporot ic fracture and hip fracture calculated at less than 0.1 percent. The left forearm bone mineral density measurements correspond to a T-score of the distal 3rd of -1.0 , at the lower limit of normal.. IMPRESSION: Mild osteopenia left femoral neck. Overall normal bone mineral density.
== END 2021-10-29 01:17 ==
PROVIDERS: PCP Family Medicine; Visit Provider Nurse Practitioner Family
DX: R07.89 Other chest pain (principal); Z12.31 Encounter for screening mammogram for malignant neoplasm of breast; N60.11 Diffuse cystic mastopathy of right breast; M85.88 Other specified disorders of bone density and structure, other site; Z78.0 Asymptomatic menopausal state
CPT/HCPCS: 76642; 77063; 77067; 77080; 71046

== ENCOUNTER 2021-10-29 03:30 | Outpatient (CLI) | payer MEDICARE, MEDICAID, SELFPAY ==
[2021-10-29 11:04] LABS: BUN 18 mg/dL (7-18); CREATININE 0.8 mg/dL (0.55-1.02); Calcium 9.2 mg/dL (8.5-10.1); Chloride 100 mmol/L (98-107); Glucose 102 mg/dL (74-106); Potassium 3.5 mmol/L (3.5-5.1); Sodium 138 mmol/L (136-145); TSH (W/Ref FT4) 2.11 uIU/mL (0.36-3.74)
== END 2021-10-29 03:31 | disposition home or self-care (01) ==
LOC: LBO 03:30
PROVIDERS: PCP Family Medicine; Visit Provider Family Medicine
DX: I10 Essential (primary) hypertension (principal); E03.9 Hypothyroidism, unspecified
CPT/HCPCS: 36415; 80048; 84443

== ENCOUNTER 2021-11-24 15:16 | Outpatient (REF) | payer MEDICARE, MEDICAID, SELFPAY ==
[2021-11-24 16:03] LABS: Bilirubin Negative (Negative); Blood Negative (Negative); Clarity Cloudy (Clear); Glucose Negative (Negative); Ketones Negative (Negative); Leukocyte Esterase Moderate (Negative); Nitrite Negative (Negative); Urobilinogen 0.2 EU/dL (Up TO 0.2)
[2021-11-24 16:09] LABS: Bacteria Few HPF (Negative); Epithelial Cells Many HPF (Negative); RBC Negative HPF (0-2); WBC >50 HPF (0-5)
[2021-11-24 16:10] LABS: C & S Indicated? No/Sq. Contamination; Crystals Negative HPF (Negative); Mucus Negative (Negative)
[2021-11-26 16:25] LABS: Chlamydia Result Negative (Negative); GC Result Negative (Negative)
== END 2021-11-24 15:17 | disposition home or self-care (01) ==
LOC: LBN 15:16
PROVIDERS: PCP Family Medicine; Visit Provider Physician Assistant
DX: B37.9 Candidiasis, unspecified (principal); R10.2 Pelvic and perineal pain; N39.0 Urinary tract infection, site not specified; Z11.3 Encounter for screening for infections with a predominantly sexual mode of transmission; Z72.51 High risk heterosexual behavior
CPT/HCPCS: 87491; 87591; 81003; 81015; 87480; 87510; 87660